=== PATIENT | female | born 1995 | race Caucasian/White ===

== ENCOUNTER 2017-05-03 00:04 | Emergency (ER) | payer SELFPAY ==
[2017-05-03 00:12] VITALS: RESP 16
--- NOTE | 2017-05-03 00:22 | EDPHY ---
H & P Stated Complaint: ETOH Time Seen by Provider: 05/03/17 00:11 HPI/ROS: Chief Complaint: Alcohol intoxication, vomiting HPI: 21-year-old female who was found on the hill intoxicated. Patient passed out after vomiting. Is unable to ambulate on their own. Patient brought in by EMS for further evaluation. No obvious signs of trauma per EMS. Remainder of history is unobtainable secondary to the patient's intoxication. ROS: Unobtainable secondary to the patient's intoxication PMH: Unknown Medications: Unknown Allergies: Unknown Social History: Positive for alcohol Family History: non-contributory Physical Exam: Gen: Somnolent, responds to painful stimuli, maintaining airway, smells of alcohol and emesis HEENT: Atraumatic Nose: no epistaxis or deformity Eyes: PERRLA, EOMI Mouth: Moist mucosa Neck: Supple, no step-offs or deformity Chest: Atraumatic, lungs clear to auscultation Heart: S1, S2 normal, no murmur Abd: Soft, non-tender, no guarding Back: Atraumatic Ext: no edema, atraumatic Skin: no rash Neuro: Sensation grossly intact, Strength 5/5 in bilateral upper and lower extremities - Personal History Current Tetanus/Diphtheria Vaccine: Unsure Current Tetanus Diphtheria and Acellular Pertussis (TDAP): Unsure - Medical/Surgical History Other PMH: unable to obtain - Social History Smoking Status: Unknown if ever smoked Constitutional: Initial Vital Signs Heart Rate 64 05/03/17 00:07 Respiratory Rate 16 05/03/17 00:07 Blood Pressure 122/81 H 05/03/17 00:07 O2 Sat (%) 94 05/03/17 00:07 O2 Delivery Mode Room Air Allergies/Adverse Reactions: Unable to Assess Allergy (Unverified 05/03/17 00:12) Home Medications: Medication Instructions Recorded Unobtainable 05/03/17 Medical Decision Making ED Course/Re-evaluation: Patient is now awake and appropriate. Ambulating unassisted to the bathroom. No current complaints. Patient is tolerating oral fluids. Patient is ready for discharge with sober ride. Departure - Departure Disposition: Home, Routine, Self-Care Clinical Impression: Alcoholic intoxication Condition: Good Instructions: Alcohol Intoxication (ED) Referrals: Patient,NotPresent [Primary Care Provider] - As per Instructions
[2017-05-03 04:46] VITALS: BP 123/66; PULSE 91; TEMP 97.9; O2SAT 96
== END 2017-05-03 04:45 | disposition home or self-care (01) ==
DX: F10.129 Alcohol abuse with intoxication, unspecified (principal)

== ENCOUNTER 2017-06-30 19:52 | Emergency (ER) | payer OTHER ==
[2017-06-30] MEDS ORDERED: IBUPROFEN 600 MG TAB PO ONE (21:09)
[2017-06-30 21:54] VITALS: BP 114/61
--- NOTE | 2017-06-30 21:56 | EDPHY ---
H & P Time Seen by Provider: 06/30/17 20:52 HPI/ROS: CHIEF COMPLAINT: Subjective fevers, chills, headache HISTORY OF PRESENT ILLNESS: 21-year-old female presents to the emergency department by private vehicle with subjective fevers, chills and headache that started yesterday afternoon. The patient was complaining of mild frontal headache and some pain in her neck and low back. Denies urinary symptoms. No sore throat. No dysphagia. No cough. No chest pain or difficulty breathing. No abdominal pain. She denies recent travel. Denies ill contacts. REVIEW OF SYSTEMS: Constitutional: Subjective fevers, chills Eyes: No double or blurry vision. ENT: No sore throat. Respiratory: No cough, no shortness of breath. Cardiac: No chest pain. Gastrointestinal: No abdominal pain, vomiting or diarrhea. Genitourinary: No dysuria. Musculoskeletal: No neck or back pain. Skin: No rashes. Neurological: headache. Past Medical/Surgical History: [employer] in [employer] school Social History: [employer] student Smoking Status: Never smoked Physical Exam: General Appearance: Alert, no distress. Temperature 37.0 degrees. No apparent distress. Nontoxic appearing. Eyes: Pupils equal and round. Extraocular motions are all intact. ENT: Mouth: Mucous membranes moist. Respiratory: No wheezing, rhonchi, or rales, lungs are clear to auscultation. Cardiovascular: Regular rate and rhythm. Gastrointestinal: Abdomen is soft and nontender, no masses, no rebound or guarding, bowel sounds normal. Neurological: Alert and oriented x 3, cranial nerves II through XII grossly intact Skin: Warm and dry, no rashes. Musculoskeletal: Nontender to palpate along the cervical, thoracic or lumbar spine. Neck is supple. Specifically no nuchal rigidity. Extremities: Full range of motion and no peripheral edema. Psychiatric: Patient is oriented X 3, there is no agitation. Constitutional: Initial Vital Signs Temperature (C) 37.4 C 06/30/17 20:00 Heart Rate 88 06/30/17 20:00 Respiratory Rate 16 06/30/17 20:00 Blood Pressure 120/64 06/30/17 20:00 O2 Sat (%) 97 06/30/17 20:00 O2 Delivery Mode Room Air Allergies/Adverse Reactions: No Known Allergies Allergy (Unverified 06/30/17 20:00) Home Medications: Medication Instructions Recorded Bcp 06/30/17 Medical Decision Making ED Course/Re-evaluation: 21-year-old female presents to the emergency department with multiple complaints including fever, chills, myalgias and fatigue. The patient has an otherwise normal examination. She has no nuchal rigidity. Her vital signs are stable. Patient was given 600 mg of ibuprofen and observed. She was feeling much better. Her headache had resolved. Her neck and back pain improved. I do not think this patient has meningitis. I did offer lumbar puncture to test for possible meningitis the patient declined. I think this is reasonable. I encouraged the patient to return to the emergency department if she had any change in symptoms or if she felt worse in any way. Differential Diagnosis: Including but not limited to viral syndrome, influenza, strep pharyngitis, mononucleosis, meningitis - Data Points Medications Given: Discontinued Medications Ibuprofen (Motrin) 600 mg PO EDNOW ONE Stop: 06/30/17 21:10 Last Admin: 06/30/17 21:12 Dose: 600 mg Departure - Departure Disposition: Home, Routine, Self-Care Clinical Impression: Myalgia Headache Qualifiers: Headache type: unspecified Headache chronicity pattern: acute headache Intractability: not intractable Qualified Code(s): R51 - Headache Condition: Good Instructions: Acute Headache (ED), Musculoskeletal Pain (ED) Additional Instructions: Adult Pain & Fever Control: We recommend Acetaminophen (Tylenol) and Ibuprofen (Motrin,Advil) for pain and fever control. When fever is high or pain severe, both drugs can be used at the same time, but at different intervals. Please note the time differences. Your dose is: Acetaminophen 1000mg every 4 to 6 hours Ibuprofen 600mg every 8 hours with food Note: do not take Acetaminophen with Hydrocodone (Vicodin, Lortab) or Oycodone (Percocet). These medications also contain Acetaminophen. No more than 3000mg of Acetaminophen should be taken in 24 hours (for an adult). Return to the emergency department if you develop headache, vomiting, or if you feel worse in any way. Referrals: MAKEDA THOMAS MD [Other] - As per Instructions
== END 2017-06-30 22:03 | disposition home or self-care (01) ==
DX: R51 Headache (principal); M79.1 Myalgia